=== PATIENT | male | born 1995 | race African-American/Black ===

== ENCOUNTER 2022-02-15 08:31 | Emergency (ER) | payer OTHER ==
[~2022-02-15] VITALS: Ht 182.9 cm; Wt 81.6 kg
[2022-02-15 08:55] VITALS: TEMP 98
[2022-02-15] MEDS ORDERED: CLEOCIN150 MG PO (10:00)
[2022-02-15 10:25] VITALS: BP 148/80
== END 2022-02-15 10:25 | disposition home or self-care (01) ==
LOC: ED 08:31
PROC: 2W2PX4Z Dressing of Left Upper Leg using Bandage (ICD-10-PCS; principal; 2022-02-15)
DX: T65.891A Toxic effect of other specified substances, accidental (unintentional), initial encounter (principal); T24.412A Corrosion of unspecified degree of left thigh, initial encounter; T32.0 Corrosions involving less than 10% of body surface; Y92.89 Other specified places as the place of occurrence of the external cause
CPT/HCPCS: 90471; 90715; 99282